=== PATIENT | female | born 1945 | race Hispanic/Latino ===

== ENCOUNTER 2016-07-14 05:52 | Inpatient (IN) | payer MEDICARE ==
--- NOTE | 2016-07-10 10:14 | Anesthesia Consultation ---
Anesthesia Consult and Med Hx Date of service: 07/10/16 - Airway Anesthetic Teeth Evaluation: Good ROM Head & Neck: Adequate Mental/Hyoid Distance: Adequate Mallampati Class: Class II Intubation Access Assessment: Probably Good - Pulmonary Exam CTA: Yes - Cardiac Exam Cardiac Exam: RRR - Pre-Operative Health Status ASA Pre-Surgery Classification: ASA3 Proposed Anesthetic Plan: General Nerve Block: FASCIA ILIACA - Pulmonary Hx Smoking: No Hx Sleep Apnea: No (ANANTH PRE SCREEN LOW RISK) - Cardiovascular System Hx Hypertension: Yes (STATES DUE TO PAIN OR ANXIETY- NO MEDS) Hx Coronary Artery Disease: No Hx Cardia Arrhythmia: Yes ("IRREGULAR HEARTBEAT") - Central Nervous System Hx Seizures: No CVA: No Hx Back Pain: Yes (KNEE PAIN, HIP PAIN, CHRONIC PAIN) - Endocrine Hx Renal Disease: No (UTI) Hx Cirrhosis: No Hx Insulin Dependent Diabetes: No Hx Non-Insulin Dependent Diabetes: Yes (BORDERLINE, NO MEDS) Hx Hypothyroidism: No - Hematic Hx Anemia: Yes (WITH PREG ONLY) - Other Systems Hx Cancer: No Hx Obesity: No - Additional Comments Anesthesia Medical History Comments: REPORTS TURNING "GREEN" AND GETTING SICK AFTER ONE SURGERY BUT HAS DONE FINE WITH OTHERS
[2016-07-10 10:20] LABS: Bilirubin,Urine NEG (Negative); Blood,Urine NEG (Negative); Ketones,Urine NEG (Negative); Leukocyte Esterase,Urine SM (Negative); Mucus,Urine FEW /HPF; Nitrite,Urine NEG (Negative); Protein,Urine <15 mg/dL mg/dL (Negative); Urobilinogen,Urine < 2.0 mg/dL (<2.0)
--- NOTE | 2016-07-12 14:22 | Admit Criteria Form ---
Admission Criteria Documentation: AMBULATORY SURGERY EXCEPTION CRITERIA Ambulatory Surgery Exception Criteria ( Place 'X' for any and all applicable criteria): Surgery or procedure performed on ambulatory basis may require inpatient stay for[A] ANY ONE of the following(1)(2)(3)(4)(5)(6)(7)(8)(9): [X] I. A preoperative situation, condition, or finding that warrants inpatient stay as indicated by ANY ONE of the following: [] a) Inpatient care needed because of severity of a disease or condition rather than the surgery (eg, severe cardiac or respiratory disease, severe infection) (15) (16 ) (17) (18) [] b) Emergent procedure (eg, angioplasty for acute ischemia)(19) [] c) Complex surgical approach or situation as indicated by ANY ONE of the following(3): [] i) Open approach needed instead of usual endoscopic, transcatheter, or other less invasive procedure [] ii) Difficult approach because of previous operation [] iii) Airway monitoring required after open neck procedures(20)(21) [] iv) Large mass requiring unusually extensive dissection [] v) Additional complicating feature requiring inpatient care (eg, drain management)(22(23): [X] d) Major surgery in a pt with high anesthetic risk as indicated by ANY ONE of the following (2)(3)(5)(7)(8): [X] i) ASA risk class III or higher (severe systemic disease impairing function) [D] [] ii) Advanced age (eg, older than 85 years)(14)(24) [] iii) Symptomatic heart failure(25) [] iv) Symptomatic asthma or COPD(8)(21) [] v) Morbid obesity with hemodynamic or respiratory problems(20)( 21)(26)(27) [] vi) Obstructive sleep apnea(20)(21) [] vii) Former premature infants who are younger than 60 weeks [] viii) High risk for severe postoperative abnormalities (eg, severe postoperative hypocalcemia after parathyroidectomy for severe hyperparathyroidism)(27)( 28) [] ix) Unstable angina(25) [] e) Drug-related risk requiring inpatient stay as indicated by ANY ONE of the following(5)(10)(14)(32)(33) [] i) Procedure requires discontinuing drugs or other therapy (eg , antiarrhythmic medication, antiseizure medication), which necessitates inpatient observation or treatment.(18)(31) [] ii) Major surgery and high risk drug use as indicated by ANY ONE of the following: [] 1) Active abuse of cocaine or similar drug [] 2) Monoamine oxidase inhibitor use [] 3) Other drug identified as posing risk [] f) Inadequate outpatient care situation as indicated by ANY ONE of the following(5)(10)(14)(32)(33) [] i) Patient lives remote from medical facility and procedure has urgent complication potential, and temporary nearby residence cannot be arranged [] ii) Patient will have postprocedure incapacitation and inadequate assistance at home, or alternative level of care cannot be arranged. [] iii) Patient will have long general anesthesia or procedure side effect resolution time, and competent person to stay with patient on first postoperative night at home or alternative level of care cannot be arranged. []iv) Other inadequate outpatient situation that cannot be handled by other means [] II. A perioperative event, condition, or finding that warrants inpatient stay as indicated by ANY ONE of the following (1)(2)(3): [] a) Inadequate physiologic recovery: cardiovascular, respiratory, or hemodynamic status not normal or near preoperative baseline(18) [] b) Hemodynamic instability [] c) Patient not alert with near normal or baseline mental status [] d) Temperature not normal or as expected and not appropriate for outpatient treatment of condition [] e) Ambulatory or appropriate activity level status not yet achieved post procedure [E](34)(35)(36) [] f) Operative site not appropriate (eg, unexpected or excessive drainage or bleeding) [] g) Postoperative effects not resolved or adequately managed (eg, significant pain or vomiting not appropriate for outpatient or next level of care)(10)(12) [] h) Complicating features requiring inpatient care as indicated by ANY ONE of the following(37): [] i) Severe complications of procedure (eg, bowel injury, airway compromise, vascular injury,severe hemorrhage) [] ii) Extensive (eg, dissection far beyond usual scope of procedure ) or prolonged (eg, 120 minutes beyond usual) surgery needed requiring inpatient postoperative care [] iii) Conversion to an open or complex procedure that requires inpatient care (eg, open vs laparoscopic cholecystectomy, abdominal vs vaginal hysterectomy)(38) [] iv) Comorbid condition or test result identified during or post procedure that requires inpatient care (7) [] v) Malignant hyperthermia(30) [] vi) Other complicating feature requiring inpatient care(22)(23) Inpatient stay may be needed until ALL of the following are present (1)(2)(3)(4) (5)(6)(10)(14)(33)(40): []a) Physiologic recovery: cardiovascular, respiratory, and hemodynamic status normal or near preoperative baseline []b) Hemodynamic stability []c) Patient alert, with near normal or baseline mental status []d) Temperature appropriate: patient afebrile or temperature appropriate for outpt treatment of condition []e) Activity level appropriate: ambulatory or appropriate activity level post procedure []f) Operative site appropriate as indicated by ALL of the following: []i) Site dry or with expected drainage []ii) Any blood noted is as expected for procedure. []g) Postoperative effects resolved or managed as indicated by ALL of the following: []i) Pain management appropriate for outpatient (or next level of) care(10) []ii) Minimal nausea and vomiting: if present, successfully treated with oral medication(12) []iii) Headache, dizziness, or drowsiness (if present) are mild. []h) Voiding status acceptable as indicated by ANY ONE of the following: []i) Voiding spontaneously []ii) No voiding but instructions given for follow-up in 6 to 8 hours []iii) Urinary catheter in place, and instructions given for follow-up []i) Complicating features requiring inpatient care manageable at a lower level of care(37) []j) Comorbid conditions manageable at a lower level of care(37) The original [employer] content created by [employer] has been revised. The portions of the content which have been revised are identified through the use of italic text or in bold, and [facility] has neither reviewed nor approved the modified material. All other unmodified content is copyright [employer]. Please see references footnoted in the original [employer] edition 2016 Admission Criteria Met: Yes
[2016-07-12 16:39] LABS: Bilirubin,Urine NEG (Negative); Blood,Urine NEG (Negative); Ketones,Urine NEG (Negative); Leukocyte Esterase,Urine NEG (Negative); Mucus,Urine FEW /HPF; Nitrite,Urine NEG (Negative); Protein,Urine <15 mg/dL mg/dL (Negative); Urobilinogen,Urine < 2.0 mg/dL (<2.0)
--- NOTE | 2016-07-13 10:22 | Cat Scan Report ---
CT PELVIS WITHOUT CONTRAST CT LOWER EXTREMITY RIGHT WITHOUT CONTRAST HISTORY: Right hip pain. TECHNIQUE: Helical CT with sagittal and coronal reformatted images. FINDINGS: No comparison at this facility. There has been previous internal fixation of a proximal right femur fracture with intramedullary mohan and femoral neck screw. The hardware appears well applied. There is no evidence for acute fracture, infection or malalignment. Moderate osteoarthritic changes are identified at the right hip. Osteophytosis, articular surface sclerosis and subchondral cyst formation is identified. There also appears to be a moderate to large area of osteonecrosis in the superior right femoral head which measures up to 2.5 cm in diameter. The femoral neck screw appears to extend into this area of osteonecrosis and may actually extend into the joint space by 1 mm. Please correlate with the images. The remaining visualized pelvis is unremarkable. There are mild osteoarthritic changes at the left hip. IMPRESSION: Previous internal fixation of a right proximal femur fracture as described. 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 The femoral neck screw extends all the way to the cortical boundary of the femoral head as described above. Please correlate with the images. Osteoarthritic changes. No acute injury is appreciated.
[2016-07-14] MEDS ORDERED: VERSED IV NR (06:00)
[2016-07-14] MEDS ORDERED: PEPCID PO NR (06:00)
[2016-07-14] MEDS ORDERED: REGLAN PO NR (06:00)
[2016-07-14] MEDS ORDERED: ANCEF/STERILE WATER 2 GM/20 ML IV NR (06:01)
[2016-07-14] MEDS ORDERED: NACL BACTERIOSTATIC INFILTRATI ONE (06:25)
[2016-07-14] MEDS: NACL 0.9% 1000 ML 1,000 ML IV SCH ×2 (06:48→23:11)
[2016-07-14] MEDS ORDERED: SUBLIMAZE ONE ×2 (07:00→07:18)
[2016-07-14] MEDS ORDERED: ZEMURON IV ONE (07:00)
[2016-07-14] MEDS ORDERED: DIPRIVAN 10 MG/ML IV ONE (07:00)
[2016-07-14] MEDS ORDERED: XYLOCAINE MPF 2% ONE (07:01)
[2016-07-14] MEDS ORDERED: MARCAINE-EPI 0.25%-1:200,000 INFILTRATI ONE (07:19)
[2016-07-14] MEDS ORDERED: XYLOCAINE 1% 20 mL ONE (07:20)
[2016-07-14] MEDS ORDERED: DECADRON ONE (07:20)
[2016-07-14] MEDS ORDERED: ZOFRAN ONE (08:10)
[2016-07-14] MEDS ORDERED: ANCEF ONE (08:10)
[2016-07-14] MEDS ORDERED: ZOFRAN IV PRN ×2 (09:30→12:25)
--- NOTE | 2016-07-14 09:30 | Anesthesia Day of Surgery ---
Anesthesia Day of Surgery - Day of Surgery Patient Examined: Yes Patient H&P Reviewed: Yes Patient is NPO: Yes
[2016-07-14] MEDS ORDERED: NACL 0.9% IR ONE ×2 (09:52→09:55)
[2016-07-14] MEDS ORDERED: BACITRACIN IR ONE (09:55)
[2016-07-14] MEDS ORDERED: POLYMYXIN B SULFATE IV ONE (09:55)
[2016-07-14] MEDS ORDERED: BICITRA ONE (11:19)
[2016-07-14] MEDS ORDERED: ACD-A IV ONE ×2 (11:19→13:43)
[2016-07-14] MEDS ORDERED: ePHEDrine SULFATE ONE (11:27)
[2016-07-14] MEDS ORDERED: NEOSTIGMINE ONE (12:05)
[2016-07-14] MEDS ORDERED: ROBINUL ONE (12:05)
[2016-07-14] MEDS ORDERED: TYLENOL PO PRN (12:25)
[2016-07-14] MEDS ORDERED: NACL 0.9% 1000 ML 1,000 ML ONE (12:25)
[2016-07-14] MEDS ORDERED: MILK OF MAGNESIA PO PRN (12:25)
[2016-07-14] MEDS ORDERED: TORADOL IV PRN ×3 (12:33→13:30)
[2016-07-14] MEDS ORDERED: SODIUM CHLORIDE FLUSH SYRINGE 10 ML IV NR (13:00)
[2016-07-14] MEDS: DILAUDID IV PRN ×4 (13:01→13:40)
--- NOTE | 2016-07-14 13:36 | Post Anesthesia Evaluation ---
- Post Anesthesia Evaluation Patient Participated: Yes Airway Patent: Yes Stable Respiratory Function: Yes Nausea/Vomiting: No Temp > 96.8F: Yes Pain Manageable: Yes Adequeate Hydration: Yes Anesthesia Complications: No Block Receding Appropriately: Not Applicable Patient on Ventilator: No
[2016-07-14] MEDS ORDERED: MORPHINE IV PRN (13:40)
[2016-07-14] MEDS: MORPHINE IV PRN (14:00)
--- NOTE | 2016-07-14 14:19 | XRay Report ---
Single view right hip: History: Postop. Findings: Total hip replacement noted. The acetabula and the femoral component is in alignment. No fracture. Postop soft tissue changes. Impression: Stable total right hip.
[2016-07-14] MEDS ORDERED: MORPHINE IV ONE (14:35)
[2016-07-14] MEDS ORDERED: NARCAN 0.4 MG/1 ML IV PRN (14:38)
[2016-07-14] MEDS ORDERED: ANCEF/NS 1 GM/50 ML 1 GM/50 ML BAG IV SCH (15:00)
--- NOTE | 2016-07-14 15:00 | XRay Report ---
RIGHT HIP RADIOGRAPH INDICATION: Osteoarthritis. COMPARISON: None similar. Correlated with CT from 2 days ago. FINDINGS: Frontal right hip intraoperative radiographs, 2 images, demonstrate right hip prosthesis in lieu of previously seen Zickel nail and right femoral head AVN. Proximal femoral neck mild deformity may be old. CONCLUSION: Intraoperative fluoroscopic assistance provided for right hip replacement, as above. Thank you for the opportunity to participate in this patient's care.
[2016-07-14] MEDS: MORPHINE PCA 30MG/30ML IV SCH (15:04)
[2016-07-14] MEDS: NEURONTIN PO SCH ×2 (15:34→21:30)
--- NOTE | 2016-07-14 18:29 | Operative Report ---
SURGEON: Barron Carter MD ASSIGNMENT MANAGER: Marcelo Henriquez, operative tech. COMPLICATIONS: None. BLOOD LOSS: Approximately 200 mL. IMPLANTS USED: [place] Tritanium acetabular component size 54. Neutral 32 mm highly cross-linked polyethylene liner. Femoral head; 32 mm BIOLOX delta ceramic femoral head. Stem; [employer] REDAPT femoral stem extended offset, size 16 and 190 mm length sleeveless stem. Oxinium is 22 mm outer diameter and -3, ____ taper femoral head. There was a standard offset stem size 16 REDAPT stem and -3 multiplied by 32 mm outer diameter femoral head and -3 neck length. BRIEF HISTORY: The patient's had a painful right hip, failed conservative treatment, and opted to undergo surgical intervention. Risk and benefit discussed, informed consent obtained, and brought to the hospital for below procedure. PROCEDURES PERFORMED: 1. Right total hip replacement, complex. 2. Removal of nail hardware in the right femur complex. 3. Removal of the hip lag screw and the interlocked screws. 4. Complete synovectomy, right hip joint. DETAILS OF THE OPERATIVE REPORT: The patient was taken to the operating room. After smooth gentamicin anesthesia, all the bony prominences were padded and placed supine on the operating table. Lopez catheter placed. The patient was then placed on the left lateral decubitus position with the right side up. Right hip and right lower extremity prepped and draped in sterile fashion. Posterolateral approach was made. Incision was carried down deep to subcutaneous tissue and tensor fascia was exposed and incised in the interval between gluteus eric and tensor fascial muscle. Following this, the posterior short abductors were identified and retracted and posterior capsule and short external rotators were taken off through the greater trochanter using a Bovie. Those kind of a pseudocapsule type of scenario. Significant scarring was noticed on the posterolateral corner. It was taken off from the trochanter using a Bovie and tack stitch was placed. The hip joint was identified and it was dislocated. ____ relocated again, so that to prevent fracture and distal aspect of the abductors were split. The entry point of the nail was identified. Significant amount of fibrous tissue was grown around. It was removed as well. All the fibrinous tissue adhesions were removed from the proximal aspect of the nail. The place where the hip screw was, helical blade was was identified, and using three attachments and extraction set the hip screw was first removed. After the setscrew was backed out, the hip screw was removed. Following that, the nail attachment was performed leaving the distal screw in place. Once the nail proximally was attached with extraction set, the distal screw was identified using fluoroscopy and it was removed. Following this, the nail was removed completely intact in one piece, no complications. It was a complex procedure, that is where the procedure become more complex. Hip joint was then dislocated. Femoral neck osteotomy was performed. Significant malunion anatomy was disturbed. The femoral neck osteotomy was performed. The head was delivered out. Size most likely 45-46 mm. We then exposed the acetabulum. Anterior, posterior, and inferior retractors were placed, ____ clean, labrum was removed, and significant arthritis noticed. We started reaming with size 42 reamer and gradually went to 47 reamer, which gave a great stability. The barba were thinning out because she has extremely shallow socket, but we had significant amount of bones still remaining, but we did not want to ream more as the 47 gave us great fit. We inserted a 48 cup in about 20-degree forward flexion and 40-degree abducted position very well fit all the way down to the bone. Osteophytes were removed using rongeurs. Trial liner was placed. Attention was drawn on the femoral side. The junction between the neck and the trochanter was cleaned. Abductors were protected. We started using box osteotome canal finder using lateralizing reamer to go as lateral as possible to get into intramedullary canal. Intraoperative fluoroscopy was used in her case and carefully the procedure was done, so that the stem or the implant does note perforate or the reamer does not perforate. We took several intraoperative fluoroscopic pictures to make sure the reamers are in right position. Given the bone, the femur, and given her short height, we finally made sure that we got in a perfect position by doing lateralizing reamer and got into perfect position and started reaming up to size 60, which gave good ____ up to 190 mm depth from the tip of the trochanter to the tip of the stem. Following that, we reamed for proximal aspect of the body and then inserted a trial stem in about 15 to 20 degrees anteverted position. We trialed with -3, 5, and 0 head. With -3 head, we had fairly the best stability and also leg length is approximated as possible. The knee and the heel matched pretty well with -3 head. The LTC was 48, which measured equal with the same one, which we measured before the neck cut. We meshed her right LTC as well. A -3 was the best shortest head and neck length we could use and distal part of the stem was inserted to the depth, which was safest beyond that, it would probable higher the risk of perforation of the femur at the anterior cortex. Trial reduction was done and hip moved through range of motion. We had full flexion up to 130 degrees. No dislocation. Full extension. Full external rotation. No dislocation. 90 degree flexed. On abducted position, we could internally rotate up to 70-80 degrees significant stability. We removed the trial components, thoroughly washed near the hip area with antibiotic-soaked followed by normal saline. Trial liner was removed. Real liner was impacted in place and well seated. Real stem was then inserted in a proper up anteversion, after the anteversion was marked, inserted, and the trunnion was then cleaned and real head was inserted and hip joint was again reduced. Moved through range of motion and found to be extremely stable as before. Leg-length fairly even. The other hip is also arthritic. The posterior capsule and short external rotators were tacked through ____ holes made in the greater trochanter using Ethibond sutures. The tensor fascia was closed with 0 Vicryl suture, subcutaneous tissue was closed with 0 and 2-0 Vicryl interrupted sutures, skin was closed with Monocryl. Aquacel dressing was done. The patient tolerated the procedure well. Abduction pillow applied. The patient tolerated the procedure well, shifted to recovery room in stable condition. Sponge and needle count was correct. JOB# [id number] ANAY/CINDY
--- NOTE | 2016-07-14 20:19 | Consultation ---
History of Present Illness - Reason for Consult Consult date: 07/14/16 Medical management Requesting physician: REENA WALTERS - History of Present Illness S/p Rt Total hip Arthroplasty sec to severe OA.No fracture. No sig PMH except DJD and OA. Post op doing well.No complaints except moderate pain Past History Past Medical History: arthritis Past Surgical History: total hip replacement Social history: lives with family Family history: no significant family history Medications and Allergies Allergies Allergy/AdvReac Type Severity Reaction Status Date / Time No Known Allergies Allergy Verified 07/03/16 15:35 Home Medications Medication Instructions Recorded Confirmed Last Taken Type Calcium Carbonate [Calcium] 600 mg PO DAILY 07/03/16 07/03/16 07/13/16 History Ergocalciferol (Vitamin D2) 400 unit PO DAILY 07/03/16 07/03/16 07/13/16 History [Vitamin D] HYDROcodone/APAP 7.5-325 [[place] 1 tab PO PRN PRN 07/03/16 07/14/16 07/14/16 04: 30 History 7.5-325 mg TAB] Active Meds: Active Medications Acetaminophen/Hydrocodone Bitart ([place] 7.5/325) 1 each PO Q4H PRN PRN Reason: Pain, Moderate (4-6) Aspirin (Aspirin) 325 mg PO BID [facility] Calcium Carbonate/Glycine (Calcium Carbonate) 648 mg PO DAILY [facility] Cefazolin Sodium (Ancef/Sterile Water 2 Gm/20 Ml) 2 gm IV PREOP NR Stop: 07/14/16 23:02 Celecoxib (Celebrex) 100 mg PO BID MARIELL[facility] Docusate Sodium (Colace) 100 mg PO BID MARIELL[facility] Famotidine (Pepcid) 20 mg PO PREOP NR Stop: 07/14/16 23:59 Last Admin: 07/14/16 06:49 Dose: 20 mg Gabapentin (Neurontin) 100 mg PO Q8HR [facility] Last Admin: 07/14/16 15:34 Dose: 100 mg Sodium Chloride (Nacl 0.9% 1000 Ml) 1,000 mls @ 75 mls/hr IV DIRECT MARIELLA Last Admin: 07/14/16 06:48 Dose: 75 mls/hr Cefazolin Sodium (Ancef/Ns 1 Gm/50 Ml) 1 gm in 50 mls @ 100 mls/hr IV Q8H [facility]IELL[facility] Stop: 07/15/16 12:44 Ketorolac Tromethamine (Toradol) 30 mg IV ONCE PRN PRN Reason: Pain Stop: 07/15/16 13:29 Last Admin: 07/14/16 13:30 Dose: 30 mg Magnesium Hydroxide (Milk Of Magnesia) 30 ml PO Q4H PRN PRN Reason: Constipation Metoclopramide HCl (Reglan) 10 mg PO PREOP NR Stop: 07/14/16 23:59 Last Admin: 07/14/16 06:49 Dose: 10 mg Midazolam HCl (Versed) 2 mg IV PREOP NR Stop: 07/14/16 23:59 Last Admin: 07/14/16 08:09 Dose: 2 mg Miscellaneous Medication (Ergocalciferol (Vitamin D2) [Vitamin D]) 400 unit PO DAILY [facility]IE[facility] Morphine Sulfate (Morphine) 2 mg IV Q4H PRN PRN Reason: Pain , Severe (7-10) Last Admin: 07/14/16 14:00 Dose: 2 mg Morphine Sulfate (Morphine [employer] 30mg/30ml) 0 mg IV DIRECT MARIELLA PRN Reason: Protocol Last Admin: 07/14/16 15:04 Dose: 1 cartstart Naloxone HCl (Narcan 0.4 Mg/1 Ml) 0.1 mg IV Q2MIN PRN PRN Reason: Res Rate </= 8 or 02 SAT < 92% Ondansetron HCl (Zofran) 4 mg IV Q8H PRN PRN Reason: Nausea And Vomiting Sodium Chloride (Sodium Chloride Flush Syringe 10 Ml) 10 ml IV PRN NR Stop: 07/15/16 13:00 Review of Systems All systems: negative Exam - Constitutional Vitals: Temp Pulse Resp BP Pulse Ox 97.5 F L 92 H 16 113/65 99 07/14/16 17:00 07/14/16 17:00 07/14/16 17:00 07/14/16 17:00 07/14/16 17:00 General appearance: Present: no acute distress, well-nourished - EENT Eyes: Present: PERRL ENT: hearing intact, clear oral mucosa - Neck Neck: Present: supple, normal ROM - Respiratory Respiratory effort: normal Respiratory: bilateral: CTA - Cardiovascular Heart Sounds: Present: S1 & S2. Absent: rub, click - Extremities Extremities: pulses symmetrical, No edema Peripheral Pulses: within normal limits - Abdominal General gastrointestinal: Present: soft, non-tender, non-distended, normal bowel sounds Female genitourinary: Present: normal - Integumentary Integumentary: Present: clear, warm, dry - Musculoskeletal Musculoskeletal: gait normal, strength equal bilaterally - Psychiatric Psychiatric: appropriate mood/affect, intact judgment & insight - Neurologic Neurologic: CNII-XII intact, moves all extremities Results - Labs CBC & Chem 7: 07/15/16 04:39 07/15/16 04:39 Labs: Abnormal lab results 07/14/16 07/14/16 Range/Units 06:39 13:20 POC Glucose 124 H 155 H (70-105) Assessment and Plan - Patient Problems (1) History of total hip arthroplasty Current Visit: Yes Status: Acute Qualifiers: Laterality: right Qualified Code(s): Z96.641 - Presence of right artificial hip joint Plan to address problem: Post op doing well (2) DVT prophylaxis Current Visit: Yes Status: Acute Plan to address problem: On ASA [address] Walters (3) Osteoarthritis Current Visit: Yes Status: Acute Qualifiers: Osteoarthritis location: hip Osteoarthritis type: O Spinal region: S Spinal osteoarthritis complication: S Laterality: bilateral Plan to address problem: On [place] (4) Pain management Current Visit: Yes Status: Acute Plan to address problem: 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
[2016-07-14] MEDS: ANCEF/NS 1 GM/50 ML 1 GM/50 ML BAG IV SCH (21:23)
[2016-07-14] MEDS: COLACE PO SCH (21:32)
[2016-07-15] MEDS: TRANEXAMIC ACID 1,000 MG in NACL 0.9% 100 ML IV NR (01:18)
[2016-07-15 05:16] LABS: Hematocrit 35.2 % (30.3-42.9); Hemoglobin 11.9 gm/dl (10.1-14.3)
[2016-07-15] MEDS: NEURONTIN PO SCH ×2 (05:20→13:20)
[2016-07-15] MEDS: ANCEF/NS 1 GM/50 ML 1 GM/50 ML BAG IV SCH ×2 (05:20→13:28)
[2016-07-15 05:27] LABS: INR 1.11 (0.87-1.13)
[2016-07-15 05:29] LABS: Anion Gap 19 mmol/L; Blood Urea Nitrogen 9 mg/dL (7-17); Calcium 7.6 mg/dL (8.4-10.2); Carbon Dioxide 23 mmol/L (22-30); Chloride 106.3 mmol/L (98-107); Glucose 138 mg/dL (65-100); Potassium 4.2 mmol/L (3.6-5.0); Sodium 144 mmol/L (137-145)
--- NOTE | 2016-07-15 09:36 | Progress Note ---
Subjective Date of service: 07/15/16 Interval history: pod1, s/p CHARMAINE, conversion from previous hip surgery. Doing fine, lying in bed, no complaints, feeling better, alert oriented conversing well, dressing dry nvi calf soft hip precuations explained. PT not yet seen her. went over hip precuations with her. Objective Vital signs: Vital Signs - 12hr 07/14/16 07/14/16 07/14/16 22:00 22:31 23:04 Temperature Pulse Rate [ From Monitor] Respiratory 20 20 20 Rate Respiratory 20 Rate [Right Hip ] Blood Pressure [Right Arm] O2 Sat by Pulse Oximetry 07/14/16 07/15/16 07/15/16 23:27 01:04 03:04 Temperature 98.5 F Pulse Rate [ 88 From Monitor] Respiratory 20 20 20 Rate Respiratory Rate [Right Hip ] Blood Pressure 117/67 [Right Arm] O2 Sat by Pulse 99 Oximetry 07/15/16 07/15/16 07/15/16 03:55 05:04 07:04 Temperature 98.7 F Pulse Rate [ 74 From Monitor] Respiratory 20 18 18 Rate Respiratory Rate [Right Hip ] Blood Pressure 126/86 [Right Arm] O2 Sat by Pulse 97 Oximetry 07/15/16 08:46 Temperature 98.7 F Pulse Rate [ 104 H From Monitor] Respiratory 18 Rate Respiratory Rate [Right Hip ] Blood Pressure 139/67 [Right Arm] O2 Sat by Pulse 97 Oximetry - Labs CBC & BMP: 07/15/16 04:39 07/15/16 04:39 Labs: Abnormal lab results 07/14/16 07/15/16 Range/Units 13:20 04:39 Creatinine 0.4 L (0.7-1.2) mg/dL Glucose 138 H (65-100) mg/dL POC Glucose 155 H (70-105) Calcium 7.6 L (8.4-10.2) mg/dL
[2016-07-15] MEDS ORDERED: NON-FORMULARY (Calcium Carbonate [Calcium] 600 MG) PO SCH (10:00)
[2016-07-15] MEDS: ASPIRIN PO SCH (10:15)
[2016-07-15] MEDS: CALCIUM CARBONATE PO SCH (10:15)
[2016-07-15] MEDS: COLACE PO SCH (10:15)
[2016-07-15] MEDS: NACL 0.9% 1000 ML 1,000 ML IV SCH (13:20)
[2016-07-15] MEDS: ERGOCALCIFEROL 400 UNIT PO SCH (13:30)
[2016-07-15] MEDS: VITAMIN D3 PO SCH (13:32)
--- NOTE | 2016-07-15 14:44 | Progress Note ---
Assessment and Plan Assessment and plan: pod1, s/p CHARMAINE, conversion from previous hip surgery. (1) s/p CHARMAINE Current Visit: Yes Status: Acute Qualifiers: Laterality: right Qualified Code(s): Z96.641 - Presence of right artificial hip joint Plan to address problem: Post op doing well (2) DVT prophylaxis On ASA [address] Carter (3) Osteoarthritis Current Visit: Yes Status: Acute Qualifiers: Osteoarthritis location: hip Osteoarthritis type: O Spinal region: S Spinal osteoarthritis complication: S Laterality: bilateral Plan to address problem: On [place] (4) Pain management continue pain meds constipation -ordered stool softeners History Interval history: pain is well controlled, no events overnight, she is complaining of constipation , last BM about 4 days ago. Hospitalist Physical - Physical exam Narrative exam: General: Patient appears well in no distress HEENT: MMM, EOMI cardiac: S1-S2 heard lungs: clear to auscultation, abdomen: soft, nontender, nondistended bowel sounds positive extremities: no edema clubbing or cyanosis Skin: no rash or lesion Neuro: no focal deficit Psych: appropriate behavior and mood, cognition intact - Constitutional Vitals: Temp Pulse Resp BP Pulse Ox 98.7 F 104 H 18 139/67 96 07/15/16 08:46 07/15/16 08:46 07/15/16 08:46 07/15/16 08:46 07/15/16 10:11 General appearance: Present: no acute distress, well-nourished Results - Labs CBC & Chem 7: 07/15/16 04:39 07/15/16 04:39 Labs: Laboratory Last Values Hgb 11.9 gm/dl (10.1-14.3) 07/15/16 04:39 Hct 35.2 % (30.3-42.9) 07/15/16 04:39 PT 14.2 Sec. (12.2-14.9) 07/15/16 04:39 INR 1.11 (0.87-1.13) 07/15/16 04:39 Sodium 144 mmol/L (137-145) 07/15/16 04:39 Potassium 4.2 mmol/L (3.6-5.0) 07/15/16 04:39 Chloride 106.3 mmol/L (98-107) 07/15/16 04:39 Carbon Dioxide 23 mmol/L (22-30) 07/15/16 04:39 Anion Gap 19 mmol/L 07/15/16 04:39 BUN 9 mg/dL (7-17) 07/15/16 04:39 Creatinine 0.4 mg/dL (0.7-1.2) L 07/15/16 04:39 Estimated GFR > 60 ml/min 07/15/16 04:39 BUN/Creatinine Ratio 22.50 % 07/15/16 04:39 Glucose 138 mg/dL (65-100) H 07/15/16 04:39 POC Glucose 155 (70-105) H 07/14/16 13:20 Calcium 7.6 mg/dL (8.4-10.2) L 07/15/16 04:39 Urine Color Yellow (Yellow) 07/12/16 16:20 Urine Turbidity Clear (Clear) 07/12/16 16:20 Urine pH 5.0 (5.0-7.0) 07/12/16 16:20 Ur Specific [place] 1.027 (1.003-1.030) 07/12/16 16:20 Urine Protein <15 mg/dl mg/dL (Negative) 07/12/16 16:20 Urine Glucose (UA) Neg mg/dL (Negative) 07/12/16 16:20 Urine Ketones Neg mg/dL (Negative) 07/12/16 16:20 Urine Blood Neg (Negative) 07/12/16 16:20 Urine Nitrite Neg (Negative) 07/12/16 16:20 Urine Bilirubin Neg (Negative) 07/12/16 16:20 Urine Urobilinogen < 2.0 mg/dL (<2.0) 07/12/16 16:20 Ur Leukocyte Esterase Neg (Negative) 07/12/16 16:20 Urine WBC (Auto) 2.0 /HPF (0.0-6.0) 07/12/16 16:20 Urine RBC (Auto) 1.0 /HPF (0.0-6.0) 07/12/16 16:20 U Epithel Cells (Auto) 2.0 /HPF (0-13.0) 07/12/16 16:20 Urine Mucus Few /HPF 07/12/16 16:20 Blood Type AB POSITIVE 07/14/16 06:30 Antibody Screen Negative 07/14/16 06:30
[2016-07-15] MEDS ORDERED: GLYCERIN ADULT 2 GM PR PRN (18:10)
[2016-07-15] MEDS ORDERED: MIRALAX 3350 PO PRN (18:11)
[2016-07-15] MEDS: MORPHINE PCA 30MG/30ML IV SCH (18:31)
[2016-07-15] MEDS ORDERED: TYLENOL PO PRN (23:51)
[2016-07-16] MEDS: ASPIRIN PO SCH ×3 (00:41→21:22)
[2016-07-16] MEDS: NEURONTIN PO SCH ×4 (00:42→21:21)
[2016-07-16] MEDS: COLACE PO SCH ×3 (00:42→21:21)
[2016-07-16] MEDS: SENOKOT S PO SCH ×2 (00:44→21:22)
[2016-07-16] MEDS ORDERED: CEPACOL X STRENGTH MM PRN (00:52)
[2016-07-16] MEDS: NACL 0.9% 1000 ML 1,000 ML IV SCH (04:00)
--- NOTE | 2016-07-16 08:36 | Progress Note ---
Assessment and Plan Assessment and plan: pod1, s/p CHARMAINE, conversion from previous hip surgery. (1) s/p CHARMAINE Current Visit: Yes Status: Acute Qualifiers: Laterality: right Qualified Code(s): Z96.641 - Presence of right artificial hip joint Plan to address problem: Post op doing well (2) DVT prophylaxis On ASA [address] Carter (3) Osteoarthritis Current Visit: Yes Status: Acute Qualifiers: Osteoarthritis location: hip Osteoarthritis type: O Spinal region: S Spinal osteoarthritis complication: S Laterality: bilateral Plan to address problem: On [place] (4) Pain management continue pain meds constipation -Continue stool softeners History Interval history: pain is well controlled, no events overnight , she states that she's been cramping now but still has not had a bowel movements Hospitalist Physical - Physical exam Narrative exam: General: Patient appears well in no distress HEENT: MMM, EOMI cardiac: S1-S2 heard lungs: clear to auscultation, abdomen: soft, nontender, nondistended bowel sounds positive extremities: no edema clubbing or cyanosis Skin: no rash or lesion Neuro: no focal deficit, patient was seen in wheelchair having physical therapy Psych: appropriate behavior and mood, cognition intact - Constitutional Vitals: Temp Pulse Resp BP Pulse Ox 98.9 F 81 20 117/61 97 07/16/16 04:00 07/16/16 04:00 07/16/16 06:31 07/16/16 04:00 07/16/16 04:00 General appearance: Present: no acute distress, well-nourished Results - Labs CBC & Chem 7: 07/15/16 04:39 07/15/16 04:39 Labs: Laboratory Last Values Hgb 11.9 gm/dl (10.1-14.3) 07/15/16 04:39 Hct 35.2 % (30.3-42.9) 07/15/16 04:39 PT 14.2 Sec. (12.2-14.9) 07/15/16 04:39 INR 1.11 (0.87-1.13) 07/15/16 04:39 Sodium 144 mmol/L (137-145) 07/15/16 04:39 Potassium 4.2 mmol/L (3.6-5.0) 07/15/16 04:39 Chloride 106.3 mmol/L (98-107) 07/15/16 04:39 Carbon Dioxide 23 mmol/L (22-30) 07/15/16 04:39 Anion Gap 19 mmol/L 07/15/16 04:39 BUN 9 mg/dL (7-17) 07/15/16 04:39 Creatinine 0.4 mg/dL (0.7-1.2) L 07/15/16 04:39 Estimated GFR > 60 ml/min 07/15/16 04:39 BUN/Creatinine Ratio 22.50 % 07/15/16 04:39 Glucose 138 mg/dL (65-100) H 07/15/16 04:39 POC Glucose 155 (70-105) H 07/14/16 13:20 Calcium 7.6 mg/dL (8.4-10.2) L 07/15/16 04:39 Urine Color Yellow (Yellow) 07/12/16 16:20 Urine Turbidity Clear (Clear) 07/12/16 16:20 Urine pH 5.0 (5.0-7.0) 07/12/16 16:20 Ur Specific [place] 1.027 (1.003-1.030) 07/12/16 16:20 Urine Protein <15 mg/dl mg/dL (Negative) 07/12/16 16:20 Urine Glucose (UA) Neg mg/dL (Negative) 07/12/16 16:20 Urine Ketones Neg mg/dL (Negative) 07/12/16 16:20 Urine Blood Neg (Negative) 07/12/16 16:20 Urine Nitrite Neg (Negative) 07/12/16 16:20 Urine Bilirubin Neg (Negative) 07/12/16 16:20 Urine Urobilinogen < 2.0 mg/dL (<2.0) 07/12/16 16:20 Ur Leukocyte Esterase Neg (Negative) 07/12/16 16:20 Urine WBC (Auto) 2.0 /HPF (0.0-6.0) 07/12/16 16:20 Urine RBC (Auto) 1.0 /HPF (0.0-6.0) 07/12/16 16:20 U Epithel Cells (Auto) 2.0 /HPF (0-13.0) 07/12/16 16:20 Urine Mucus Few /HPF 07/12/16 16:20 Blood Type AB POSITIVE 07/14/16 06:30 Antibody Screen Negative 07/14/16 06:30
[2016-07-16] MEDS: ERGOCALCIFEROL 400 UNIT PO SCH (10:30)
[2016-07-16] MEDS ORDERED: TORADOL IV PRN (11:37)
[2016-07-16] MEDS ORDERED: TORADOL ONE (11:37)
[2016-07-16] MEDS ORDERED: FLEXERIL PO PRN (11:45)
--- NOTE | 2016-07-16 11:54 | Progress Note ---
Subjective Date of service: 07/16/16 Interval history: POD2, PATIENT DOING FINE, NO COMPLAINTS, HAD ONE SPIKE OF FEVER. NO FEVER SINCE PER NIRSE. AT PRESERNT AFEB[facility]LE, PATIENT STATED THAT EVER SINCE THE STAFF MOVED HER AND GAVE HER A BATH IT BROUGHT PAIN IN HER HIP AND LEG AND HAS BEEN SORE AND PAINFUL EVER SINCE. LEG LOOKS ALIGNED, DRESSING DRY, CALF SOFT NT NVI PAIN UNDER CONTROL A/P SPOKE TO PT ABOUT GETTING HER UP. PATIENT HAS NOT BEEN AMBULATED BY PT UNTIL NOW. I DIDNT REVEIVE ANY PHONE CALL FROM NURSE OR PT KALIA=STERDAY HIP PRECUATION REVIEWED. INFORM MEDICINE ABOUT PATIENTS THROAT. Objective Vital signs: Vital Signs - 12hr 07/16/16 07/16/16 07/16/16 00:00 00:31 00:42 Temperature 102.4 F H Pulse Rate [ 100 H From Monitor] Respiratory 22 20 20 Rate Blood Pressure 152/75 [Right Arm] O2 Sat by Pulse 97 Oximetry 07/16/16 07/16/16 07/16/16 00:44 01:42 01:44 Temperature Pulse Rate [ From Monitor] Respiratory 20 20 20 Rate Blood Pressure [Right Arm] O2 Sat by Pulse Oximetry 07/16/16 07/16/16 07/16/16 02:31 04:00 04:31 Temperature 98.9 F Pulse Rate [ 81 From Monitor] Respiratory 18 20 18 Rate Blood Pressure 117/61 [Right Arm] O2 Sat by Pulse 97 Oximetry 07/16/16 07/16/16 06:31 08:45 Temperature 98.6 F Pulse Rate [ 82 From Monitor] Respiratory 20 18 Rate Blood Pressure 150/84 [Right Arm] O2 Sat by Pulse 99 Oximetry - Labs CBC & BMP: 07/15/16 04:39 07/15/16 04:39
[2016-07-16] MEDS: CALCIUM CARBONATE PO SCH (12:44)
[2016-07-16] MEDS: VITAMIN D3 PO SCH (12:44)
[2016-07-16] MEDS: MIRALAX 3350 PO SCH (16:12)
[2016-07-16] MEDS: NORCO 7.5/325 PO PRN (22:28)
[2016-07-17] MEDS: MORPHINE IV PRN ×2 (05:33→23:02)
[2016-07-17] MEDS: NEURONTIN PO SCH ×3 (05:34→23:05)
[2016-07-17] MEDS: COLACE PO SCH ×2 (09:21→23:05)
[2016-07-17] MEDS: NORCO 7.5/325 PO PRN ×2 (09:22→14:42)
[2016-07-17] MEDS: ASPIRIN PO SCH ×2 (09:23→23:05)
[2016-07-17] MEDS: CALCIUM CARBONATE PO SCH (09:24)
[2016-07-17] MEDS: VITAMIN D3 PO SCH (09:24)
--- NOTE | 2016-07-17 11:21 | Progress Note ---
Assessment and Plan Assessment and plan: pod1, s/p CHARMAINE, conversion from previous hip surgery. (1) s/p CHARMAINE Current Visit: Yes Status: Acute Qualifiers: Laterality: right Qualified Code(s): Z96.641 - Presence of right artificial hip joint Plan to address problem: Post op doing well (2) DVT prophylaxis On ASA [address] Carter (3) Osteoarthritis Current Visit: Yes Status: Acute Qualifiers: Osteoarthritis location: hip Osteoarthritis type: O Spinal region: S Spinal osteoarthritis complication: S Laterality: bilateral Plan to address problem: On [place] (4) Pain management continue pain meds constipation -Continue stool softeners, add miralax daily. Of note, patient made aware that she may ask for glycerin suppository as it is ordered daily PRN. Acute PT evaluation for rehabilitation placement History Interval history: pain is well controlled, no events overnight , she is yet to have a Hospitalist Physical - Physical exam Narrative exam: General: Patient appears well in no distress, has wedge between her legs. HEENT: MMM, EOMI cardiac: S1-S2 heard lungs: clear to auscultation, abdomen: soft, nontender, nondistended bowel sounds positive extremities: no edema clubbing or cyanosis Skin: no rash or lesion Neuro: no focal deficits, in wheel chair Psych: appropriate behavior and mood, cognition intact - Constitutional Vitals: Temp Pulse Resp BP Pulse Ox 98.4 F 75 20 138/77 97 07/17/16 07:59 07/17/16 07:59 07/17/16 10:12 07/17/16 07:59 07/17/16 07:59 General appearance: Present: no acute distress, well-nourished Results - Labs CBC & Chem 7: 07/15/16 04:39 07/15/16 04:39 Labs: Laboratory Last Values Hgb 11.9 gm/dl (10.1-14.3) 07/15/16 04:39 Hct 35.2 % (30.3-42.9) 07/15/16 04:39 PT 14.2 Sec. (12.2-14.9) 07/15/16 04:39 INR 1.11 (0.87-1.13) 07/15/16 04:39 Sodium 144 mmol/L (137-145) 07/15/16 04:39 Potassium 4.2 mmol/L (3.6-5.0) 07/15/16 04:39 Chloride 106.3 mmol/L (98-107) 07/15/16 04:39 Carbon Dioxide 23 mmol/L (22-30) 07/15/16 04:39 Anion Gap 19 mmol/L 07/15/16 04:39 BUN 9 mg/dL (7-17) 07/15/16 04:39 Creatinine 0.4 mg/dL (0.7-1.2) L 07/15/16 04:39 Estimated GFR > 60 ml/min 07/15/16 04:39 BUN/Creatinine Ratio 22.50 % 07/15/16 04:39 Glucose 138 mg/dL (65-100) H 07/15/16 04:39 POC Glucose 155 (70-105) H 07/14/16 13:20 Calcium 7.6 mg/dL (8.4-10.2) L 07/15/16 04:39 Urine Color Yellow (Yellow) 07/12/16 16:20 Urine Turbidity Clear (Clear) 07/12/16 16:20 Urine pH 5.0 (5.0-7.0) 07/12/16 16:20 Ur Specific [place] 1.027 (1.003-1.030) 07/12/16 16:20 Urine Protein <15 mg/dl mg/dL (Negative) 07/12/16 16:20 Urine Glucose (UA) Neg mg/dL (Negative) 07/12/16 16:20 Urine Ketones Neg mg/dL (Negative) 07/12/16 16:20 Urine Blood Neg (Negative) 07/12/16 16:20 Urine Nitrite Neg (Negative) 07/12/16 16:20 Urine Bilirubin Neg (Negative) 07/12/16 16:20 Urine Urobilinogen < 2.0 mg/dL (<2.0) 07/12/16 16:20 Ur Leukocyte Esterase Neg (Negative) 07/12/16 16:20 Urine WBC (Auto) 2.0 /HPF (0.0-6.0) 07/12/16 16:20 Urine RBC (Auto) 1.0 /HPF (0.0-6.0) 07/12/16 16:20 U Epithel Cells (Auto) 2.0 /HPF (0-13.0) 07/12/16 16:20 Urine Mucus Few /HPF 07/12/16 16:20 Blood Type AB POSITIVE 07/14/16 06:30 Antibody Screen Negative 07/14/16 06:30
[2016-07-17] MEDS ORDERED: MIRALAX 3350 PO SCH (14:13)
[2016-07-17] MEDS: MIRALAX 3350 PO SCH (14:42)
--- NOTE | 2016-07-17 15:01 | Consultation ---
History of Present Illness - Reason for Consult Consult date: 07/17/16 Evaluate for Acute IRU - History of Present Illness 71 y.o. female who reports fall at her home in Apr 2016 when she initially suffered a right hip fracture; s/p IM mohan/nail at outside hospital. Pt reports being transferred to SNF following surgery with limited progress due to ongoing pain, however, later improved and was able to ambulate with a RW. 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 Temp on 07/15 , 07/16. Now resolved. Consult requested for post-acute placement recommendations. Past History Past Medical History: arthritis, hypertension Past Surgical History: total hip replacement (right), Other (right hip-IM nail in Apr 2016) Social history: Lives alone (close family support; single level home, no stairs to enter). denies: smoking, alcohol abuse Family history: hypertension, other (CHF) Medications and Allergies Allergies Allergy/AdvReac Type Severity Reaction Status Date / Time No Known Allergies Allergy Verified 07/03/16 15:35 Home Medications Medication Instructions Recorded Confirmed Last Taken Type Calcium Carbonate [Calcium] 600 mg PO DAILY 07/03/16 07/03/16 07/13/16 History Ergocalciferol(Vitamin D2)(Nf) 400 unit PO DAILY 07/03/16 07/03/16 07/13/16 History [Vitamin D] HYDROcodone/APAP 7.5-325 [[place] 1 tab PO PRN PRN 07/03/16 07/14/16 07/14/16 04: 30 History 7.5-325 mg TAB] Active Meds: Active Medications Acetaminophen (Tylenol) 650 mg PO Q6H PRN PRN Reason: Fever Last Admin: 07/16/16 00:44 Dose: 650 mg Acetaminophen/Hydrocodone Bitart ([place] 7.5/325) 1 each PO Q4H PRN PRN Reason: Pain, Moderate (4-6) Last Admin: 07/17/16 14:42 Dose: 1 each Aspirin (Aspirin) 325 mg PO BID MARIELLA Last Admin: 07/17/16 09:23 Dose: 325 mg Benzocaine/Menthol (Cepacol X Strength) 1 each MM Q2H PRN PRN Reason: Sore Throat Last Admin: 07/16/16 01:15 Dose: 1 each Calcium Carbonate/Glycine (Calcium Carbonate) 648 mg PO DAILY [facility] Last Admin: 07/17/16 09:24 Dose: 648 mg Celecoxib (Celebrex) 100 mg PO BID [facility] Last Admin: 07/17/16 10:12 Dose: 100 mg Cholecalciferol (Vitamin D3) 400 unit PO QDAY [facility] Last Admin: 07/17/16 09:24 Dose: 400 unit Cyclobenzaprine HCl (Flexeril) 5 mg PO Q8H PRN PRN Reason: Muscle Spasm Docusate Sodium (Colace) 100 mg PO BID [facility] Last Admin: 07/17/16 09:21 Dose: 100 mg Gabapentin (Neurontin) 100 mg PO Q8HR [facility] Last Admin: 07/17/16 14:45 Dose: 100 mg Glycerin (Glycerin Adult 2 Gm) 1 supp OR QDAY PRN PRN Reason: Constipation Sodium Chloride (Nacl 0.9% 1000 Ml) 1,000 mls @ 75 mls/hr IV DIRECT [facility] Last Admin: 07/16/16 04:00 Dose: 75 mls/hr Magnesium Hydroxide (Milk Of Magnesia) 30 ml PO Q4H PRN PRN Reason: Constipation Morphine Sulfate (Morphine) 2 mg IV Q4H PRN PRN Reason: Pain , Severe (7-10) Last Admin: 07/14/16 14:00 Dose: 2 mg Morphine Sulfate (Morphine) 2 mg IV Q4H PRN PRN Reason: Pain, Moderate (4-6) Last Admin: 07/17/16 05:33 Dose: 2 mg Ondansetron HCl (Zofran) 4 mg IV Q8H PRN PRN Reason: Nausea And Vomiting Polyethylene Glycol (Miralax 3350) 17 gm PO NOW [facility] Last Admin: 07/17/16 14:42 Dose: 17 gm Polyethylene Glycol (Miralax 3350) 17 gm PO QDAY [facility] Last Admin: 07/17/16 14:48 Dose: 17 gm Senna/Docusate Sodium (Senokot S) 2 tab PO QHS [facility] Last Admin: 07/16/16 21:22 Dose: 2 tab Review of Systems All systems: negative Ears, nose, mouth and throat: no headache Cardiovascular: no chest pain, no lightheadedness Respiratory: no cough, no shortness of breath Gastrointestinal: constipation (last BM on 2/23) Genitourinary Female: no dysuria Musculoskeletal: other (pain 7/10 at right hip; RLE swelling) Exam - Constitutional Vitals: Vital Signs - 12hr 07/17/16 07/17/16 07/17/16 05:29 05:33 06:03 Temperature Pulse Rate [ From Monitor] Respiratory 20 18 Rate Blood Pressure [Right Arm] O2 Sat by Pulse 97 Oximetry 07/17/16 07/17/16 07/17/16 07:59 10:12 14:42 Temperature 98.4 F Pulse Rate [ 75 From Monitor] Respiratory 18 20 20 Rate Blood Pressure 138/77 [Right Arm] O2 Sat by Pulse 97 Oximetry General appearance: no acute distress, other (sitting up in WC) - EENT Eyes: EOM intact ENT: hearing intact - Neck Neck: supple, normal ROM - Respiratory Respiratory effort: normal Respiratory: bilateral: CTA - Cardiovascular Rhythm: regular Heart Sounds: Present: S1 & S2 - Extremities Extremity abnormal: edema (RLE), other (post-op dressing in place to RLE) - Gastrointestinal General gastrointestinal: Present: soft, non-tender, non-distended, normal bowel sounds - Musculoskeletal Musculoskeletal: other (abduction wedge in place; intact ankle DF/PF) - Neurologic Neurologic: CNII-XII intact, other (sensation grossly intact) - Psychiatric Psychiatric: appropriate mood/affect, intact judgment & insight, memory intact, cooperative - Allied health notes Allied health notes reviewed: PT (min/CGA for transfers and gait), OT (modA for LB dressing; otherwise, SBA/STEPHEN for ADLs) - Labs CBC & Chem 7: 07/15/16 04:39 07/15/16 04:39 Labs: Laboratory Results - last 72 hr 07/15/16 07/15/16 07/15/16 04:39 04:39 04:39 Hgb 11.9 Hct 35.2 PT 14.2 INR 1.11 Sodium 144 Potassium 4.2 Chloride 106.3 Carbon Dioxide 23 Anion Gap 19 BUN 9 Creatinine 0.4 L Estimated GFR > 60 BUN/Creatinine Ratio 22.50 Glucose 138 H Calcium 7.6 L Assessment and Plan Patient was assessed and evaluated for Acute Inpatient Rehab Unit. 71 y.o. female s/p right CHARMAINE; post-op fever now resolved; gait dysfunction. Improving functional independence with self cares and mobility. Rehab options discussed with patient in detail. At this time, pt is min/CGA for transfers and gait; modA for LB dressing. Pt reports that she has support at discharge and would prefer to go home with home health; SW notified. Pt has RW from prior surgery; further equipment per OT. Please call for any further questions. Thank you for consultation. - Patient Problems (1) Unsteady gait Current Visit: Yes Status: Acute (2) Osteoarthritis Current Visit: Yes Status: Acute Qualifiers: Osteoarthritis location: hip Osteoarthritis type: O Spinal region: S Spinal osteoarthritis complication: S Laterality: right (3) HTN (hypertension) Current Visit: Yes Status: Acute
[2016-07-17] MEDS: SENOKOT S PO SCH (23:06)
[2016-07-18] MEDS: MORPHINE IV PRN ×4 (03:11→09:38)
[2016-07-18] MEDS: NEURONTIN PO SCH ×2 (07:00→13:25)
[2016-07-18 08:37] VITALS: BP 153/96
[2016-07-18] MEDS: ASPIRIN PO SCH (09:32)
[2016-07-18] MEDS: COLACE PO SCH (09:33)
[2016-07-18] MEDS: CALCIUM CARBONATE PO SCH (10:04)
[2016-07-18] MEDS: NORCO 7.5/325 PO PRN (13:25)
--- NOTE | 2016-07-18 14:02 | Discharge Summary ---
Providers - Providers Date of Admission: 07/14/16 05:52 Attending physician: ERENDIRA CURTIS 07/14/16 12:25 Consult to Case Management [CONS] Routine Services Needed at Discharge: Home Health Services DME Equipment Physical Therapy Donor Center Technician Notified:: MANUFACTURER Consult to Physician [CONS] Routine Consulting Provider: MARLENY COLORADO Reason For Exam: complex hip replacement and postop and medical man Place consult to:: DR. COLORADO Notified:: DR. COLORADO Was contact made?: Yes If yes, spoke with:: DR. COLORADO Time called:: 17:53 Comment:: CONSULT COMPLETED - FOZ[facility] Occupational Therapy Evaluate and Treat [CONS] Routine Comment: ,high bed,high chair,high TOILET SEAT Reason For Exam: s/p complex CHARMAINE right side,posterior hip precautio 07/14/16 12:28 Physical Therapy Evaluation and Treat [CONS] Routine Comment: posterior hip precautions Reason For Exam: s/p complex CHARMAINE Mode of Transport?: Walker Weight bearing status?: Full wt bearing Assistive devices?: Yes: please order shoe lift on left side 07/17/16 09:38 Consult Acute Rehabilitation [CONS] Routine Consulting Provider: BRITTANY AMIN Reason For Exam: R hip revision Primary care physician: ALEC BOWMAN Hospitalization Hospital course: 71 YO Female admitted for OA and hip pain. Pt treated with supportive care. Pt taken to OR for right CHARMAINE as per ortho surgery. Pt convalesced well postoperatively. PT consulted. Acute Rehab consulted for admission. Pt seen and evaluated and informed staff that she prefers to go home with Home health, and home PT. Pt seen and evaluated prior to discharge but no significant new physical exam findings. Pt discharged home and instructed to f/u pcp 1wk, ortho prn. 32 minutes dedicated to patient discharge and education. Disposition: DISCHARGED TO HOME OR SELFCARE - Discharge Diagnoses (1) HTN (hypertension) Status: Acute Qualifiers: Hypertension type: H (2) History of total hip arthroplasty Status: Acute Qualifiers: Laterality: right Qualified Code(s): Z96.641 - Presence of right artificial hip joint (3) Osteoarthritis Status: Acute Qualifiers: Osteoarthritis location: hip Osteoarthritis type: O Spinal region: S Spinal osteoarthritis complication: S Laterality: right (4) Pain management Status: Acute Core Measure Documentation - Palliative Care Palliative Care/ Comfort Measures: Not Applicable - Core Measures Any of the following diagnoses?: none Exam - Constitutional Vitals: Temp Pulse Resp BP Pulse Ox 98.3 F 83 18 153/96 99 07/18/16 08:00 07/18/16 08:00 07/18/16 08:00 07/18/16 08:00 07/18/16 10:00 General appearance: Present: no acute distress, well-nourished - EENT Eyes: Present: PERRL ENT: hearing intact, clear oral mucosa - Neck Neck: Present: supple, normal ROM - Respiratory Respiratory effort: normal Respiratory: bilateral: CTA - Cardiovascular Heart Sounds: Present: S1 & S2. Absent: rub, click - Extremities Extremities: pulses symmetrical, No edema Peripheral Pulses: within normal limits - Abdominal General gastrointestinal: Present: soft, non-tender, non-distended, normal bowel sounds Female genitourinary: Present: normal - Integumentary Integumentary: Present: clear, warm, dry - Musculoskeletal Musculoskeletal: gait normal, strength equal bilaterally - Psychiatric Psychiatric: appropriate mood/affect, intact judgment & insight - Neurologic Neurologic: CNII-XII intact, moves all extremities Plan Activity: advance as tolerated Weight Bearing Status: Weight Bear as Tolerated (Weight bearing as per ortho instructions.) Follow up with: ALEC BOWMAN MD [Primary Care Provider] - 7 Days Prescriptions: Docusate Sodium [Colace CAP] 100 mg PO BID #20 capsule HYDROcodone/APAP 7.5-325 [[place] 7.5-325 mg TAB] 1 each PO Q4H PRN #30 tablet PRN Reason: Pain, Moderate (4-6) Polyethylene Glycol 3350 [Miralax 3350] 17 gm PO QDAY #15 powd.pack Sennosides/Docusate [Senokot S] 2 tab PO QHS #20 tablet
== END 2016-07-18 16:55 | disposition home or self-care (01) | DRG 468 ==
LOC: 3A 05:52 → 2B-SURG 16:13
PROVIDERS: ADMIT Orthopaedic Surgery; ATTEND Internal Medicine
PROC: 0SR90JZ Replacement of Right Hip Joint with Synthetic Substitute, Open Approach (ICD-10-PCS; principal; 2016-07-14)
PROC: 0SPR0JZ Removal of Synthetic Substitute from Right Hip Joint, Femoral Surface, Open Approach (ICD-10-PCS; 2016-07-14)
DX: T84.84XA Pain due to internal orthopedic prosthetic devices, implants and grafts, initial encounter (principal); M16.11 Unilateral primary osteoarthritis, right hip; R26.81 Unsteadiness on feet; I10 Essential (primary) hypertension; K59.00 Constipation, unspecified; Y83.8 Other surgical procedures as the cause of abnormal reaction of the patient, or of later complication, without mention of misadventure at the time of the procedure; Z82.49 Family history of ischemic heart disease and other diseases of the circulatory system; Y92.89 Other specified places as the place of occurrence of the external cause
CPT/HCPCS: 36415; 72192; 80048; 81001; 82962; 85014; 85018; 85610; 86850; 86900; 86901; 87040; 87086; 87116; 88300; 88302; 88304; 88305; 88311; 94760; A4217; C1776; G8978-GP; G8979-GP; G8987-GO; G8988-GO; J0690; J1100; J1170; J1885; J2250; J2270; J2405; J2704; J2710; J3010; J7030